=== PATIENT | male | born 1950 | race Caucasian/White ===

== ENCOUNTER 2018-08-09 11:11 | Emergency (ER) | payer MEDICAID, MEDICARE, SELFPAY ==
[~2018-08-09] VITALS: Ht 584.7 cm; Wt 83.2 kg
[~2018-08-09 11:11] MED LIST: FAMO-1 PO; NO HOME MEDS; [UNRECOGNIZED DRUG - CODE] PO
[2018-08-09] MEDS ORDERED: TRAM50TA2 PO (12:07)
[2018-08-09 13:26] VITALS: BP 140/71
== END 2018-08-09 13:29 | disposition home or self-care (01) ==
LOC: ER 11:12
DX: M25.561 Pain in right knee (principal)
CPT/HCPCS: 73560; 99284

== ENCOUNTER 2023-09-30 10:04 | Emergency (ER) | payer MEDICARE, OTHER ==
[~2023-09-30] VITALS: Ht 167.6 cm; Wt 77.0 kg
[2023-09-30 11:04] LABS: BASOPHILS # (AUTO) 0.1 X10'3 (0-0.2); BASOPHILS % (AUTO) 0.5 % (0-1); EOSINOPHILS % (AUTO) 9.1 % (0-6); HEMATOCRIT 37.7 % (42.0-52.0); HEMOGLOBIN 12.3 g/dl (14.0-17.9); LYMPHOCYTES # (AUTO) 1.6 X10'3 (1.1-4.8); LYMPHOCYTES % (AUTO) 14.4 % (21-51); MEAN CORPUSCULAR HEMOGLOBIN 27.7 PG (27.0-31.0); MEAN CORPUSCULAR HGB CONC 32.6 g/dL (33.0-36.5); MEAN CORPUSCULAR VOLUME 84.8 FL (78-98); MONOCYTES # (AUTO) 0.9 X10'3 (0-0.9); MONOCYTES % (AUTO) 8.2 % (2-12); NEUTROPHILS # (AUTO) 7.4 X10'3 (1.8-7.7); NEUTROPHILS % (AUTO) 67.8 % (42-75); PLATELET COUNT 301 X10'3 (140-440); RED BLOOD COUNT 4.45 X10'6 (4.70-6.10); RED CELL DISTRIBUTION WIDTH 16.2 % (11.5-14.5); WHITE BLOOD COUNT 10.9 X10'3 (4.5-11.0)
[2023-09-30 11:26] LABS: LIPASE 35 U/L (16-77); MAGNESIUM 2.4 MG/DL (1.5-2.4)
[2023-09-30 14:17] VITALS: TEMP 98.7
[2023-09-30 15:41] LABS: APTT 27 SECONDS (22-32); PROTHROMBIN TIME 10.5 SECONDS (9.0-12.0)
[2023-09-30 15:46] LABS: ALANINE AMINOTRANSFERASE 12 U/L (12-78); ALBUMIN 3.5 G/DL (3.4-5.0); ALKALINE PHOSPHATASE 54 IU/L (46-116); ANION GAP 8 (8-16); ASPARTATE AMINO TRANSFERASE 17 U/L (10-37); BILIRUBIN,TOTAL 0.3 MG/DL (0.1-1.0); BLOOD UREA NITROGEN 31 MG/DL (7-18); BUN/CREATININE RATIO 20.8 (10.0-20.0); C-REACTIVE PROTEIN 0.19 MG/DL (0.0-0.5); CALCIUM 8.7 MG/DL (8.5-10.1); CHLORIDE 100 MMOL/L (99-107); CREATININE 1.49 MG/DL (0.60-1.10); GLUCOSE 126 MG/DL (70-104); SODIUM 137 MMOL/L (135-145); TOTAL CARBON DIOXIDE 28.7 MMOL/L (24-32); TOTAL PROTEIN 6.9 G/DL (6.4-8.2); eCRCL 40 ML/MIN; eGFR 46 ML/MIN
[2023-09-30] MEDS ORDERED: FURO-150 PO (17:38)
[2023-09-30 18:03] VITALS: BP 108/73; PULSE 68; RESP 12; O2SAT 100
== END 2023-09-30 18:05 | disposition home or self-care (01) ==
LOC: ER 10:05
DX: R60.0 Localized edema (principal); R21 Rash and other nonspecific skin eruption
CPT/HCPCS: 36415; 71045; 80053; 83605; 83690; 83735; 83880; 84484; 85025; 85610; 85651; 85730; 86140; 87040; 93005; 93971; 99285

== ENCOUNTER 2023-10-04 15:09 | Emergency (ER) | payer OTHER ==
[~2023-10-04] VITALS: Ht 170.2 cm; Wt 76.7 kg
[~2023-10-04 15:09] MED LIST changes: +FURO-150 PO
[2023-10-04 15:51] VITALS: BP 116/58; PULSE 69; RESP 18; TEMP 97.8; O2SAT 99
[2023-10-04 15:51] LABS: BASOPHILS # (AUTO) 0.1 X10'3 (0-0.2); BASOPHILS % (AUTO) 0.6 % (0-1); EOSINOPHILS # (AUTO) 1.7 X10'3 (0-0.9); EOSINOPHILS % (AUTO) 13.4 % (0-6); HEMOGLOBIN 11.9 g/dl (14.0-17.9); LYMPHOCYTES # (AUTO) 1.7 X10'3 (1.1-4.8); LYMPHOCYTES % (AUTO) 13.6 % (21-51); MEAN CORPUSCULAR HEMOGLOBIN 27.6 PG (27.0-31.0); MEAN CORPUSCULAR HGB CONC 32.2 g/dL (33.0-36.5); MEAN CORPUSCULAR VOLUME 85.6 FL (78-98); MEAN PLATELET VOLUME 8.8 FL (7.4-10.4); MONOCYTES # (AUTO) 0.9 X10'3 (0-0.9); MONOCYTES % (AUTO) 7.3 % (2-12); NEUTROPHILS # (AUTO) 8.1 X10'3 (1.8-7.7); NEUTROPHILS % (AUTO) 65.1 % (42-75); PLATELET COUNT 315 X10'3 (140-440); RED BLOOD COUNT 4.33 X10'6 (4.70-6.10); RED CELL DISTRIBUTION WIDTH 16.6 % (11.5-14.5); WHITE BLOOD COUNT 12.4 X10'3 (4.5-11.0)
[2023-10-04 16:07] LABS: ALANINE AMINOTRANSFERASE 18 U/L (12-78); ALBUMIN 3.4 G/DL (3.4-5.0); ALBUMIN/GLOBULIN RATIO 1.1 (1.1-1.5); ALKALINE PHOSPHATASE 55 IU/L (46-116); ANION GAP 9 (8-16); ASPARTATE AMINO TRANSFERASE 20 U/L (10-37); BILIRUBIN,TOTAL 0.4 MG/DL (0.1-1.0); BLOOD UREA NITROGEN 38 MG/DL (7-18); BUN/CREATININE RATIO 20.3 (10.0-20.0); CALCIUM 8.4 MG/DL (8.5-10.1); CHLORIDE 99 MMOL/L (99-107); CREATININE 1.87 MG/DL (0.60-1.10); GLUCOSE 129 MG/DL (70-104); POTASSIUM 3.7 MMOL/L (3.5-5.1); SODIUM 135 MMOL/L (135-145); TOTAL CARBON DIOXIDE 26.8 MMOL/L (24-32); TOTAL PROTEIN 6.6 G/DL (6.4-8.2); eCRCL 33 ML/MIN; eGFR 36 ML/MIN
[2023-10-04 16:13] LABS: PRO BRAIN NATRIURETIC PEPTIDE 1993 PG/ML (0-125)
[2023-10-04 17:20] LABS: BILIRUBIN,URINE NEGATIVE (Neg); CLARITY,URINE CLOUDY (Clear); COLOR,URINE YELLOW (Yellow); GLUCOSE, URINE NEGATIVE (Neg); KETONES,URINE NEGATIVE (Neg); LEUKOCYTE ESTERASE ,URINE MODERATE (Neg); NITRITES, URINE NEGATIVE (Neg); OCCULT BLOOD,URINE NEGATIVE (Neg); PROTEIN,URINE NEGATIVE (Neg); UA COLLECTION TYPE CLN CATCH MIDSTREAM; UROBILINOGEN,URINE 0.2 E.U/dL (0.2-1.0)
[2023-10-04 17:31] LABS: BACTERIA,URINE FEW /HPF (Neg); RBC,URINE 0-2 /HPF (0-2); SQUAMOUS EPITHELIAL CELL,UR FEW /LPF (FEW); WBC CLUMPS,URINE FEW /HPF (NEGATIVE)
[2023-10-04] MEDS ORDERED: CIPR-259 PO (18:26)
== END 2023-10-04 18:46 | disposition home or self-care (01) ==
LOC: ER 15:11
DX: R60.9 Edema, unspecified (principal); N39.0 Urinary tract infection, site not specified; E78.00 Pure hypercholesterolemia, unspecified; I50.9 Heart failure, unspecified; Z79.2 Long term (current) use of antibiotics; Z79.899 Other long term (current) drug therapy
CPT/HCPCS: 36415; 71045; 80053; 81001; 83880; 84484; 85025; 93005; 99285